=== PATIENT | female | born 1995 | race Caucasian/White ===

== ENCOUNTER → 2016-03-28 | Outpatient (CLI) | payer OTHER ==
--- NOTE | 2016-03-28 16:30 | US ---
EXAMINATION TYPE: US OB >= 14 wk fetus DATE OF EXAM: 03/28/2016 4:19 PM COMPARISON: NONE HISTORY: LGA TECHNIQUE: EXAM MEASUREMENTS: GESTATIONAL AGE / DATING Physician Established: (35 weeks/2 days) EDC: 04/30/2016 Dates by LMP: (35 weeks/2 days) EDC: 04/30/2016 Dates by First Scan: (35 weeks/0 days) EDC: 05/02/2016 Dates by Current Scan for: (35 weeks/1 days) EDC: 05/01/2016 SURVEY IUP: Single PLACENTA: Fundal PREVIA: No previa IVORY: 14.5 cm Normal CERVICAL LENGTH (transabdominal: norm > 3.0cm): 4.1 cm BIOMETRY PRESENTATION: Breech BPD: 8.7 cm 35 weeks / 1 days HC: 32.8 cm 37 weeks / 2 days AC: 31.3 cm 35 weeks / 2 days FL: 6.3 cm 32 weeks / 5 days ESTIMATED WEIGHT IN GRAMS: 2499 grams ESTIMATED WEIGHT IN LBS/OZS: 5 lbs. 8 oz. WEIGHT PERCENTAGE BASED ON ESTABLISHED DATE: 32 % HC/AC: 1.1 FL/AC: 20% HEART RATE: 140 bpm RHYTHM: Normal IMPRESSION: GROWTH ACCORDING TO DATES. LIMITED ANATOMY SEEN DUE TO ADVANCED GESTATIONAL AGE and [place] DING.
== END | disposition home or self-care (01) ==
LOC: RADUSWWP 15:47
PROVIDERS: ATTEND Obstetrics & Gynecology
DX: O36.63X0 Maternal care for excessive fetal growth, third trimester, not applicable or unspecified (principal); Z3A.35 35 weeks gestation of pregnancy
CPT/HCPCS: 76805

== ENCOUNTER 2016-04-05 22:03 | Outpatient (CLI) | payer OTHER | END 2016-04-05 22:33 | disposition home or self-care (01) | LOC: FBPOP 22:03 | PROVIDERS: ATTEND Obstetrics & Gynecology | DX: Z53.9 Procedure and treatment not carried out, unspecified reason (principal); O99.89 Other specified diseases and conditions complicating pregnancy, childbirth and the puerperium; M54.9 Dorsalgia, unspecified; O32.1XX0 Maternal care for breech presentation, not applicable or unspecified; Z3A.36 36 weeks gestation of pregnancy | CPT/HCPCS: 59025; 84112; G0463; 99213 ==

== ENCOUNTER 2016-04-07 13:15 | Inpatient (IN) | payer OTHER ==
[2016-04-07] MEDS ORDERED: ceFAZolin 2 GM in SODIUM CHLORIDE 0.9% 100 ML IVPB ONE (14:00)
[2016-04-07] MEDS: LACTATED RINGERS 1,000 ML IV SCH ×2 (14:00→19:51)
[2016-04-07] MEDS ORDERED: LACTATED RINGERS 1,000 ML IV SCH (14:00)
[2016-04-07] MEDS ORDERED: CITRIC ACID-SODIUM CITRATE 15 ML CUP PO ONE (14:00)
[2016-04-07] MEDS ORDERED: LACTATED RINGERS 1,000 ML IV ONE (14:00)
--- NOTE | 2016-04-07 14:07 | P.HPOB ---
History of Present Illness H&P Date: 04/07/16 Chief Complaint: Leaking of fluid. This patient is a pleasant 20-year-old 1 para 0 female estimated gestational age 36-5/7 weeks who presents to labor and delivery with complaints of spontaneous rupture of membranes at 12:30 today. Patient's care is complicated by known breech presentation. Patient's been followed by Dr. Gallardo and otherwise appears uncomplicated. Review of Systems Ears, nose, mouth and throat: Denies headache, Denies sore throat Cardiovascular: Denies chest pain, Denies shortness of breath Respiratory: Denies cough Gastrointestinal: Reports excessive gas Genitourinary: Reports Menstruation: Reports amenorrhea Musculoskeletal: Denies myalgias Past Medical History Past Medical History: No Reported History History of Any Multi-Drug Resistant Organisms: None Reported Past Surgical History: No Surgical Hx Reported Additional Past Surgical History / Comment(s): 1 kidney Past Psychological History: No Psychological Hx Reported Smoking Status: Current every day smoker Past Alcohol Use History: None Reported Past Drug Use History: None Reported Medications and Allergies Home Medications Medication Instructions Recorded Confirmed Type Feh-Iybe-Lmglw Acid 1 cap PO DAILY 04/05/16 04/07/16 History [-U Capsule] Allergies Allergy/AdvReac Type Severity Reaction Status Date / Time No Known Allergies Allergy Verified 04/07/16 13:30 Exam - Vital Signs Vital signs: Intake and Output 04/06/16 04/07/16 04/07/16 22:59 06:59 14:59 Other: Weight 81.647 kg Patient Weight 04/08/16 06:59 Weight 81.647 kg - OBG Physical Exam Abdomen: bowel sounds normal, no diffuse tenderness, no bruit present, no guarding noted, no hepatomegaly, no splenomegaly, no mass Vulva: both: normal Cervix: Cervix is fingertip with gross rupture membranes Uterus: enlarged Results blood work shows she is overall negative, rubella immune, RPR nonreactive, hepatitis B negative, toxoplasmosis was negative, HIV was nonreactive. Ultrasounds as above. TODAY CONFIRMS BREECH Assessment and Plan (1) Premature rupture of membranes Narrative/Plan: This is a pleasant 20-year-old 1 para 0 female at 36-5/7 weeks' gestation with spontaneous premature rupture membranes and active labor. Patient has known breech presentation is confirmed at this time. Plan is to proceed with immediate section. Patient does understand the surgery and risks including risks of infection, bleeding, possible injury to bowel, bladder, vessels, and/or other organs. All the patient's questions are answered and a written consent was obtained. Status: Acute (2) Breech presentation Status: Acute (3) Rh negative status during Status: Acute
--- NOTE | 2016-04-07 14:17 | US ---
EXAMINATION TYPE: US OB limited DATE OF EXAM: 04/07/2016 2:09 PM COMPARISON: In pacs CLINICAL HISTORY: presenting part. EXAM PERFORMED: Transabdominal (TA) GESTATIONAL AGE / DATING No growth performed on today?s study per ordering physician SURVEY PRESENTATION: Breech HEART RATE: 132 bpm RHYTHM: Normal IMPRESSION: Breech presentation
[2016-04-07 14:25] LABS: Basophils # (A) 0.1 k/uL (0-0.2); Basophils % (A) 1 %; CH 30.6; CHCM 32.3; Eosinophils # (A) 0.2 k/uL (0-0.7); Eosinophils % (A) 1 %; HCT 40.9 % (34.0-46.0); HDW 2.55; HGB 13.5 gm/dL (11.4-16.0); Luc # (Auto) 0.29; Luc % (Auto) 2; Lymphocytes # (A) 1.5 k/uL (1.0-4.8); Lymphocytes % (A) 11 %; MCH 31.5 pg (25.0-35.0); MCHC 33.1 g/dL (31.0-37.0); MCV 95.4 fL (80.0-100.0); Mean Platelet Volume 8.3; Monocytes # (A) 1.5 k/uL (0-1.0); Monocytes % (A) 10 %; Neutrophils # (A) 10.9 k/uL (1.3-7.7); Neutrophils % (A) 76 %; RBC 4.29 m/uL (3.80-5.40); RDW 13.2 % (11.5-15.5); WBC 14.4 k/uL (4.0-11.0); WBC (Perox) 13.71
[2016-04-07] MEDS ORDERED: OXYTOCIN 10 UNIT/ML 1 ML VIAL IM ONE (14:26)
[2016-04-07] MEDS ORDERED: ONDANSETRON 4 MG/2 ML VIAL ONE (14:26)
[2016-04-07] MEDS ORDERED: PHENYLEPHRINE-0.9% NACL SYG 1 MG/10 ML SYRINGE ONE (14:26)
[2016-04-07] MEDS ORDERED: MORPHINE SULFATE (PF) 0.3 MG/0.3 ML SYR ONE (14:26)
[2016-04-07] MEDS ORDERED: NALBUPHINE 10 MG/ML AMPUL ONE (14:26)
[2016-04-07] MEDS ORDERED: SIMETHICONE 80 MG CHEWABLE PO PRN (15:40)
[2016-04-07] MEDS ORDERED: Rhogam IMMUNE GLOBULIN 1,500 UNIT/1 ML IM ONE (15:40)
[2016-04-07] MEDS ORDERED: diphenhydrAMINE 50 MG/ML 1 ML VIAL IVP PRN (15:40)
[2016-04-07] MEDS ORDERED: ACETAMINOPHEN TAB 325 MG TAB PO PRN (15:40)
[2016-04-07] MEDS ORDERED: NALOXONE 0.4 MG/ML 1 ML VIAL IV PRN ×2 (15:40→15:44)
[2016-04-07] MEDS ORDERED: ONDANSETRON 4 MG/2 ML VIAL IVP PRN (15:40)
[2016-04-07] MEDS ORDERED: METOCLOPRAMIDE 5 MG/ML 2 ML VIAL IVP PRN (15:40)
[2016-04-07] MEDS ORDERED: ZOLPIDEM 5 MG TAB PO PRN (15:40)
[2016-04-07] MEDS ORDERED: METHYLERGONOVINE 0.2 MG/ML 1 ML AMP IM ONE (15:41)
[2016-04-07] MEDS ORDERED: NALBUPHINE 10 MG/ML AMPUL IV PRN (15:44)
[2016-04-07] MEDS ORDERED: MORPHINE SULFATE 4 MG/ML SYRINGE IVP PRN (15:44)
[2016-04-07] MEDS: OXYTOCIN 30 UNITS/500 ML NS 30 UNIT in SALINE 1 500ML.BAG IV SCH ×2 (15:59→16:23)
[2016-04-07 16:35] LABS: Basophils # (A) 0.1 k/uL (0-0.2); Basophils % (A) 0 %; CH 30.8; CHCM 32.9; Eosinophils # (A) 0.1 k/uL (0-0.7); Eosinophils % (A) 1 %; HCT 33.7 % (34.0-46.0); HDW 2.56; HGB 11.2 gm/dL (11.4-16.0); Luc # (Auto) 0.24; Luc % (Auto) 1; Lymphocytes # (A) 1.4 k/uL (1.0-4.8); Lymphocytes % (A) 7 %; MCH 31.3 pg (25.0-35.0); MCHC 33.2 g/dL (31.0-37.0); MCV 94.1 fL (80.0-100.0); Mean Platelet Volume 8.1; Monocytes # (A) 0.6 k/uL (0-1.0); Monocytes % (A) 3 %; Neutrophils % (A) 87 %; RBC 3.58 m/uL (3.80-5.40); RDW 13.3 % (11.5-15.5); WBC 18.3 k/uL (4.0-11.0); WBC (Perox) 18.55
--- NOTE | 2016-04-07 17:07 | P.OP ---
Date of Procedure: 04/07/16 Preoperative Diagnosis: #1: 36-5/7 week . #2: Premature rupture of membranes and labor. #3: Known breech presentation Postoperative Diagnosis: #1: Same. #2: Unicornuate uterus. Procedure(s) Performed: Primary low transverse section Anesthesia: spinal Surgeon: Joseph Lou [employer] Service Team Member #1: Toshia Burton Estimated Blood Loss (ml): 800 Pathology: other (Placenta) Condition: stable Disposition: floor Indications for Procedure: Please see dictated H&P for intimate details of this patient's admission. Brief summary this is a pleasant 20-year-old 1 para 0 female 36-5/7 weeks gestation who was admitted to labor and delivery with spontaneous rupture membranes at 1230 hrs. Patient's care is per Dr. Gallardo is been complicated by known breech presentation. Ultrasound confirms persistent breech and spontaneous rupture membranes. Patient understands method of delivery is to proceed with section at this time. Patient does understand this and risks including risks of infection, bleeding, possible injury bowel, bladder, vessels, and other organs. All the patient's questions are answered written consent is obtained. Operative Findings: Viable female Apgars 8 and 9 delivery time is 1446 hrs. in the sacrum anterior breech presentation. 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 Description of Procedure: This patient has a Rodriguez catheter placed to straight drain. Patient subsequently taken to the operating room where she sat up and spinal anesthetic is administered without incident. With an adequate level of anesthesia she has abdominal prep and drape. Scalpels and taken a Pfannenstiel skin incision is then made. A second scalpel is taken down to the fascia and the fascia scored with the scalpel. Using the Blanc scissors I extend the fascial incision bilaterally. The fascia then dissected off the rectus muscles sharply. The rectus muscles are and the peritoneum was identified and entered sharply. Peritoneal incision extended superior and inferior without difficulty. Bladder blade is then placed. Bladder peritoneum was taken sharply off the lower uterine segment scalpels and taken low transverse uterine incision is then made. Using a hemostat I bluntly entered the uterine cavity and there is loss of clear fluid. This incision extended bluntly. The infant is found to be sacrum anterior presentation using the usual breech maneuvers we have delivery of viable female infant Apgars 8 and 9 delivery time is 1446 hrs. After delivery of the the umbilical cord is doubly clamped and cut. This has spontaneous respirations and good cry and grossly appears normal. The placenta is then manually extracted intact. Uterus is then externalized and uterine incision demarcated with Florez clamps. All tissues removed from the uterus. Inspection shows a normal right tube and ovary. There is an absent left tube and ovary however inspection of the left pelvic sidewall suggest a rudimentary ovary. With this done the uterus is then closed using 0 Vicryl running locked fashion 2 layers good hemostasis is noted bladder peritoneum was reapproximated using a 3-0 Vicryl. Excess fluid is removed from the abdomen and pelvis. Uterus tubes and ovaries are as above. This is a unicornuate uterus. Uterus placed back into the abdomen. Parietal peritoneum was then closed using 0 Vicryl running fashion. Rectus muscle reapproximate 0 Vicryl interrupted fashion. Fascia is then closed using 0 PDS. Fascial incision is intact and hemostatic. Subcutaneous tissues and closed using a 3-0 Vicryl. Skin is and closed using kina. Sterile dressing is applied. All counts are correct 3. There are no complications. Estimate blood loss is 800 mL.
--- NOTE | 2016-04-07 17:09 | P.PN ---
Progress Note - Text This is progress note on Miss Jaquelin Frazier. I was called to see Jaquelin secondary to persistent bleeding. She multiple golf ball size clots and bright red in nature. Uterine massage is done and the patient was giving IV Pitocin and IM Methergine. Persistent massage was done until the bleeding subsides. Stat CBC is done shows a hemoglobin 11.1. Patient is pointing appears stable bleeding does appear to have subsided. Most likely cause of her bleeding is atony, this appears to be resolving. Plan is to watch closely, and repeat CBC in the morning.
[2016-04-07] MEDS: SENNOSIDES-DOCUSATE SODIUM 1 EACH TAB PO SCH (19:49)
[2016-04-07 21:23] VITALS: BMI 31.8
[2016-04-07] MEDS ORDERED: METHYLERGONOVINE 0.2 MG TAB PO SCH (22:00)
[2016-04-08] MEDS ORDERED: Acetaminophen-Codeine 300-30mg TAB PO PRN ×2 (00:54)
[2016-04-08] MEDS ORDERED: KETOROLAC 30 MG/ML 1 ML VIAL IVP PRN (00:54)
[2016-04-08] MEDS: LACTATED RINGERS 1,000 ML IV SCH ×2 (03:46→21:59)
[2016-04-08 05:48] LABS: Basophils % (A) 0 %; CH 30.7; CHCM 33.7; Eosinophils # (A) 0.1 k/uL (0-0.7); Eosinophils % (A) 1 %; HCT 22.8 % (34.0-46.0); HDW 2.57; HGB 7.8 gm/dL (11.4-16.0); Luc # (Auto) 0.23; Luc % (Auto) 2; Lymphocytes # (A) 1.6 k/uL (1.0-4.8); Lymphocytes % (A) 13 %; MCH 31.5 pg (25.0-35.0); MCHC 34.4 g/dL (31.0-37.0); MCV 91.6 fL (80.0-100.0); Mean Platelet Volume 9.3; Monocytes # (A) 0.5 k/uL (0-1.0); Monocytes % (A) 4 %; Neutrophils % (A) 80 %; RBC 2.48 m/uL (3.80-5.40); RDW 13.3 % (11.5-15.5); WBC 12.5 k/uL (4.0-11.0); WBC (Perox) 12.53
[2016-04-08] MEDS ORDERED: HYDROcodone/APAP 5-325MG 1 EACH TAB PO PRN ×2 (06:17)
--- NOTE | 2016-04-08 06:36 | P.PNOBGPC ---
Subjective - Subjective Patient reports: Reports appetite normal, Reports voiding normally, Reports pain well controlled, Reports ambulating normally Jackson: doing well Objective - Vital Signs Latest vital signs: Vital Signs Temp Pulse Resp BP Pulse Ox 04/08/16 04:00 98.6 F 73 16 128/68 98 04/08/16 02:00 98 04/08/16 00:00 99.8 F H 84 16 128/71 97 04/07/16 22:00 98 04/07/16 20:00 98.2 F 93 16 126/67 98 04/07/16 18:02 94 20 133/67 04/07/16 17:32 106 H 20 129/82 96 04/07/16 17:17 99 20 128/76 97 04/07/16 17:02 96 20 108/76 100 04/07/16 16:48 106 H 20 121/75 99 04/07/16 16:38 84 20 105/71 100 04/07/16 16:18 121 H 20 153/87 100 04/07/16 16:11 90 20 120/60 100 04/07/16 16:00 80 94 L 04/07/16 15:48 67 20 109/57 100 04/07/16 15:33 60 20 110/56 99 04/07/16 15:17 97.6 F 88 20 116/58 94 L 04/07/16 14:17 86 20 150/85 Intake and Output 04/07/16 04/07/16 04/08/16 14:59 22:59 06:59 Intake Total 0 548 1000 Output Total 200 1300 Balance 0 348 -300 Intake: IV 0 500 Oxytocin 30 Units/500 ml 0 500 Ns 30 unit In Saline 1 500ml.bag @ 120 mls/hr IV .Q4H10M KEELY Rx#: [id number] Intake, IV Titration 48 1000 Amount Lactated Ringers 1,000 ml 1000 @ 125 mls/hr IV .Q8H KEELY Rx#:[id number] Oxytocin 30 Units/500 ml 48 Ns 30 unit In Saline 1 500ml.bag @ 120 mls/hr IV .Q4H10M KEELY Rx#: [id number] Output: Urine 200 1300 Other: Weight 81.647 kg Patient Weight 04/08/16 06:59 Weight 81.647 kg - Exam Lungs: bilateral: normal Chest: Normal S1, Normal S2 Extremities: Present: normal Abdomen: Present: normal appearance, soft. Absent: distention, tenderness Incision: Present: normal, dry, intact Uterus: Present: normal, firm - Labs Labs: Abnormal Lab Results - Last 24 Hours (Table) 04/07/16 04/07/16 04/08/16 Range/Units 14:15 16:14 05:31 WBC 14.4 H 18.3 H 12.5 H (4.0-11.0) k/uL RBC 3.58 L 2.48 L (3.80-5.40) m/uL Hgb 11.2 L 7.8 L D (11.4-16.0) gm/dL Hct 33.7 L 22.8 L (34.0-46.0) % Neutrophils # 10.9 H 16.0 H 10.0 H (1.3-7.7) k/uL Monocytes # 1.5 H (0-1.0) k/uL Assessment and Plan (1) Premature rupture of membranes Narrative/Plan: Postoperative day #1. Patient is resting without new complaints and had no further bleeding episodes since last evening. Vital signs are stable, she is afebrile, and not tachycardic. Uterus is firm, nontender, and she is having normal lochia this morning. Her incision is intact and dry. Hemoglobin this morning is 7.8 which is consistent with her estimated blood loss . Plan today is to remove her catheter, encourage ambulation, allow her to shower , advance to a regular diet, begin iron therapy, and continue routine care. Patient and I did have a long discussion about her unicornuate uterus and she also informed me that she's been told she only has one kidney as well. She understands she will need to be watched closely her next for risk of delivery, PROM, etc. 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 Dr. Burton will continue her care after today. Current Visit: Yes Status: Acute Code(s): O42.90 - CIPRIANO ROM, 7TH0 BETW RUPT & ONST LABR, UNSP WEEKS OF GEST SNOMED Code(s): 43189243 (2) Breech presentation Current Visit: Yes Status: Acute Code(s): O32.1XX0 - MATERNAL CARE FOR BREECH PRESENTATION, UNSP SNOMED Code(s): 2475446 (3) Rh negative status during Current Visit: Yes Status: Acute Code(s): O09.899 - SUPERVISION OF OTHER HIGH RISK PREGNANCIES, UNSP TRIMESTER SNOMED Code(s): 852956562 (4) Anemia Current Visit: Yes Status: Acute Code(s): D64.9 - ANEMIA, UNSPECIFIED SNOMED Code(s): 156099590
[2016-04-08] MEDS: IBUPROFEN 600 MG TAB PO PRN (07:03)
--- NOTE | 2016-04-08 08:13 | P.PN ---
Progress Note - Text Date:04/08 Time:700 Patient is status post . Patient seen this morning with VAS score of 2. c/o of pruritus, no c/o nausea/vomiting, comfortable and doing well.
[2016-04-08] MEDS: SENNOSIDES-DOCUSATE SODIUM 1 EACH TAB PO SCH ×2 (08:45→19:59)
[2016-04-08] MEDS: IRON AG/C/B12/CA/SUC.ACID/STOM 1 EACH TAB PO SCH (08:45)
[2016-04-08] MEDS: diphenhydrAMINE 25 MG CAP PO PRN (19:59)
[2016-04-09] MEDS ORDERED: Acetaminophen-Codeine 300-30mg TAB PO PRN (01:09)
[2016-04-09] MEDS: Acetaminophen-Codeine 300-30mg TAB PO PRN ×5 (01:22→21:32)
[2016-04-09] MEDS: diphenhydrAMINE 25 MG CAP PO PRN ×3 (01:23→21:32)
--- NOTE | 2016-04-09 07:21 | P.PNOBGPC ---
Subjective - Subjective Principal diagnosis: Status post primary section postoperative day #2 Interval history: Patient does complain of some pain on the right side of her incision near her hip area, worse when she is ambulating. She is passing flatus and bowel movement. She is urinating without difficulty. She states her bleeding is minimal was very small clots. She did have to switch back from [place] to Tylenol 3 due to a reaction with the [place] of face flushing. Patient reports: Reports appetite normal, Reports voiding normally, Reports pain well controlled, Reports ambulating normally : doing well Objective - Vital Signs Latest vital signs: Vital Signs Temp Pulse Resp BP Pulse Ox 04/09/16 00:00 99.5 F 81 18 120/69 97 04/08/16 16:00 100 F H 86 20 121/69 100 04/08/16 12:00 98.2 F 70 20 111/74 97 04/08/16 08:00 98.1 F 66 20 117/79 97 Intake and Output 04/08/16 04/09/16 04/09/16 22:59 06:59 14:59 Output Total 800 Balance -800 Output: Estimated Blood Loss 800 - Exam Extremities: Present: normal. Absent: tenderness Abdomen: Present: normal appearance, soft (Positive bowel sounds 4). Absent: distention, tenderness Incision: Present: normal, dry, intact. Absent: erythematous Uterus: Present: normal, firm. Absent: tenderness Assessment and Plan (1) delivery delivered Narrative/Plan: Impression is status post primary delivery postoperative day #2. Plan is to continue working on pain control and ambulation. Continue with postoperative care. Current Visit: Yes Status: Acute Code(s): O82 - ENCOUNTER FOR DELIVERY WITHOUT INDICATION SNOMED Code(s): 833491851
[2016-04-09] MEDS: IRON AG/C/B12/CA/SUC.ACID/STOM 1 EACH TAB PO SCH (08:10)
[2016-04-09] MEDS: guaiFENesin SYRUP 100MG/5ML 200 MG/10 ML CUP PO PRN ×2 (17:04→23:27)
[2016-04-09] MEDS: SENNOSIDES-DOCUSATE SODIUM 1 EACH TAB PO SCH ×2 (17:34→21:33)
[2016-04-10] MEDS: Acetaminophen-Codeine 300-30mg TAB PO PRN (01:40)
--- NOTE | 2016-04-10 07:57 | P.DS ---
Providers Date of admission: 04/07/16 13:57 Expected date of discharge: 04/10/16 Attending physician: Krissy Gallardo - Discharge Diagnosis(es) (1) delivery delivered Current Visit: Yes Status: Acute Hospital Course: This is a 20-year-old female 1 para 0 at 36-5/7 weeks who presented with spontaneous rupture of membranes. She underwent a primary section due to breech presentation. At the time of section it was found that she had a unicornuate uterus with just a right horn. Her post operative course was complicated by some hemorrhage on postoperative day #0. This did resolve with Methergine and oxytocin. Her hemoglobin did drop however she is been relatively asymptomatic. She does have some mild lightheadedness when she gets up but it stabilizes after she gets moving. Her lochia is minimal at this time. She is bottle feeding. She does complain of a head cold and some coughing. She has passed flatus and bowel movement and is urinating without difficulty. Her vital signs are stable. Abdomen is soft with positive bowel sounds 4. Incision is clean dry and intact. Extremities show negative Homans. Impression is status post primary section postoperative day #3. Plan is to discharge home today. José Miguel will be removed and Steri-Strips placed prior to discharge. She will be given prescriptions for ibuprofen and Tylenol 3. She is encouraged to continue taking guaifenesin as needed for her cough. She is advised to follow up in the office with Dr. Gallardo in 1 week. She is also advised to call the office if she has any further questions or concerns prior to her appointment time. Procedures: Primary low transverse section on 04/07/2016 Patient Condition at Discharge: Stable Plan - Discharge Summary New Discharge Prescriptions: Acetaminophen-Codeine 300-30mg [Tylenol w/codeine #3] 1 each PO Q4HR PRN #30 tab PRN Reason: Mild Pain exceeding Tylenol Ibuprofen [Motrin] 600 mg PO Q6HR PRN #60 tab PRN Reason: Mild Pain Or Fever >= 100.5 Iron Ag/C/B12/Ca/Suc.acid/Stom [Chromagen LF] 1 each PO DAILY #30 tab Discharge Medication List Ouh-Nofm-Rhfwc Acid [-U Capsule] 1 cap PO DAILY 04/05/16 [ History] Acetaminophen-Codeine 300-30mg [Tylenol w/codeine #3] 1 each PO Q4HR PRN #30 tab 04/10/16 [Rx] Ibuprofen [Motrin] 600 mg PO Q6HR PRN #60 tab 04/10/16 [Rx] Iron Ag/C/B12/Ca/Suc.acid/Stom [Chromagen LF] 1 each PO DAILY #30 tab 04/10/16 [ Rx] guaiFENesin SYRUP 100MG/5ML [Robitussin] 200 mg PO Q6H PRN #0 cup 04/10/16 [Rx] Follow up Appointment(s)/Referral(s): Krissy Gallardo DO [Doctor of Osteopathic Medicine] - 1 Week (Postoperative check in 1 week check in 6 weeks) Activity/Diet/Wound Care/Special Instructions: Instructions 1. Do not begin any exercise program for 3 weeks. 2. Do not resume sexual relations for 3 weeks or longer if uncomfortable. 3. You may take tub baths or showers at any time. 4. You may use tampons if desired after 3 weeks. 5. Keep the area of episiotomy (stitches) clean and dry. 6. If you are not nursing, wear a good fitting, supportive bra during the day and limit fluid intake for at least 1 week to prevent breast engorgement. 7. Call the office, [phone], within the next week to make appointment for your 6 week checkup if it has not already been made. 8. Report any of the following occurrences to the doctor promptly: a. Heavy, excessive bleeding b. Chills, fever c. Burning or frequency of urination d. Pain or redness and breasts if nursing e. Increasing pain or swelling in episiotomy (stitches). In addition to the above instructions, the following additional should be followed: 1. No heavy lifting or straining (exercising) until after 6 week checkup. 2. Keep abdominal incision clean and dry: You may wear a dressing if more comfortable. 3. Make office appointment for 10 days after going home or as instructed by her doctor. Discharge Disposition: HOME SELF-CARE
[2016-04-10 08:16] VITALS: BP 130/81; PULSE 74; RESP 16; TEMP 97.8
[2016-04-10] MEDS: IRON AG/C/B12/CA/SUC.ACID/STOM 1 EACH TAB PO SCH (10:13)
[2016-04-10] MEDS: SENNOSIDES-DOCUSATE SODIUM 1 EACH TAB PO SCH (10:13)
[2016-04-10] MEDS ORDERED: medroxyPROGESTERone 150 MG/ML 1ML VIAL IM ONE (13:30)
[2016-04-10] MEDS: IBUPROFEN 600 MG TAB PO PRN (13:57)
== END 2016-04-10 15:00 | disposition home or self-care (01) | DRG 765 ==
LOC: FBPOP 13:15 → 4FBP 13:57
PROVIDERS: ADMIT Obstetrics & Gynecology; ATTEND Obstetrics & Gynecology
PROC: 3E0S3NZ Introduction of Analgesics, Hypnotics, Sedatives into Epidural Space, Percutaneous Approach (ICD-10-PCS; 2016-04-07)
PROC: 10D00Z1 Extraction of Products of Conception, Low, Open Approach (ICD-10-PCS; principal; 2016-04-07 14:30)
DX: O32.1XX0 Maternal care for breech presentation, not applicable or unspecified (principal); O72.1 Other immediate postpartum hemorrhage; Q60.0 Renal agenesis, unilateral; Q51.4 Unicornate uterus; D64.9 Anemia, unspecified; O42.013 Preterm premature rupture of membranes, onset of labor within 24 hours of rupture, third trimester; Q50.01 Congenital absence of ovary, unilateral; Q50.6 Other congenital malformations of fallopian tube and broad ligament; J00 Acute nasopharyngitis [common cold]; O99.52 Diseases of the respiratory system complicating childbirth; T40.2X5A Adverse effect of other opioids, initial encounter; R42 Dizziness and giddiness; O99.334 Smoking (tobacco) complicating childbirth; O26.893 Other specified pregnancy related conditions, third trimester; R23.2 Flushing; F17.200 Nicotine dependence, unspecified, uncomplicated; Z3A.36 36 weeks gestation of pregnancy; Z37.0 Single live birth; Z67.41 Type O blood, Rh negative
CPT/HCPCS: 59025; 76815; 85025; 86850; 86900; 86901; 88307; 99213

== ENCOUNTER 2018-10-15 14:10 | Emergency (ER) | payer OTHER ==
[2018-10-15 14:13] VITALS: BP 116/69; PULSE 63; RESP 18; TEMP 97.8
[2018-10-15] MEDS ORDERED: MAG HYDROX/AL HYDROX/SIMETH 30 ML, HYOSCYAMINE ELIXIR 10 ML, CIMETIDINE HCL 300 MG, LID... PO STA ×4 (14:36)
[2018-10-15] MEDS ORDERED: FAMOTIDINE 20 MG TAB PO STA (14:36)
--- NOTE | 2018-10-15 14:38 | ED ---
Abdominal Pain HPI - General Chief Complaint: Abdominal Pain Stated Complaint: ABd Pain Time Seen by Provider: 10/15/18 14:20 Source: patient Mode of arrival: ambulatory Limitations: no limitations - History of Present Illness Initial Comments: 22-year-old female patient presents to the emergency department today for evaluation of midepigastric abdominal discomfort and acid reflux. Patient states that she's had worsening symptoms since last night. States she does have a history of peptic ulcer disease but hasn't been taking her medication. Patient states she did have a couple episodes of vomiting with this last evening. She denies any diarrhea or constipation. Denies any lower abdominal pain. Denies any hematuria, dysuria, urinary frequency, urinary urgency. Denies chance of . Patient denies any recent rash, fever, chills, shortness breath, chest pain, constipation, back pain, numbness, tingling, dizziness, weakness, hematuria, dysuria, urinary urgency, urinary frequency, headache, visual changes, or any other complaints. - Related Data Home Medications Medication Instructions Recorded Confirmed medroxyPROGESTERone [Depo-Provera] 150 mg IM Q90D 10/15/18 10/15/18 Previous Rx's Medication Instructions Recorded Famotidine [Pepcid] 20 mg PO HS #30 tablet 10/15/18 Allergies Allergy/AdvReac Type Severity Reaction Status Date / Time No Known Allergies Allergy Verified 10/15/18 14:33 Review of Systems ROS Statement: Those systems with pertinent positive or pertinent negative responses have been documented in the HPI. ROS Other: All systems not noted in ROS Statement are negative. 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 History of Any Multi-Drug Resistant Organisms: None Reported Past Surgical History: No Surgical Hx Reported Additional Past Surgical History / Comment(s): 1 kidney Past Anesthesia/Blood Transfusion Reactions: No Reported Reaction Past Psychological History: No Psychological Hx Reported Smoking Status: Current every day smoker Past Alcohol Use History: Occasional Past Drug Use History: None Reported - Past Family History Mother Family Medical History: Thyroid Disorder General Exam Limitations: no limitations General appearance: alert, in no apparent distress, other (This is a well- developed, well-nourished adult female patient in no acute distress. Vital signs upon presentation are temperature 97.8F, pulse 63, respirations 18, blood pressure 116/69, pulse ox 100% on room air.) Eye exam: Present: normal appearance, PERRL, EOMI. Absent: scleral icterus, conjunctival injection, periorbital swelling ENT exam: Present: normal exam, normal oropharynx, mucous membranes moist Respiratory exam: Present: normal lung sounds bilaterally. Absent: respiratory distress, wheezes, rales, rhonchi, stridor Cardiovascular Exam: Present: regular rate, normal rhythm, normal heart sounds. Absent: systolic murmur, diastolic murmur, rubs, gallop, clicks GI/Abdominal exam: Present: soft, tenderness (Midepigastric), normal bowel sounds. Absent: distended, guarding, rebound, rigid Neurological exam: Present: alert, oriented X3, CN II-XII intact Psychiatric exam: Present: normal affect, normal mood Skin exam: Present: warm, dry, intact, normal color. Absent: rash Course Vital Signs 10/15/18 14:11 Temperature 97.8 F Pulse Rate 63 Respiratory 18 Rate Blood Pressure 116/69 O2 Sat by Pulse 100 Oximetry Medical Decision Making - Medical Decision Making 22-year-old female patient presents to the emergency department today for evaluation of acid reflux and midepigastric discomfort. Patient has history of peptic ulcer disease and states symptoms are similar. I did offer to perform lab testing and give IV medications. Patient declined stating that she would just like treatment for the symptoms. We will give GI cocktail. She'll be given a prescription for Pepcid. She is instructed to follow-up with her primary care physician for recheck in 1-2 days. She is instructed to follow up with GI specialist for recheck if needed. Return parameters were discussed in detail. She verbalizes understanding and agrees with this plan. Disposition Clinical Impression: Acid reflux, Abdominal pain Disposition: HOME SELF-CARE Condition: Good Instructions (If sedation given, give patient instructions): Diet for Stomach Ulcers and Gastritis (ED), Gastroesophageal Reflux Disease (ED), Abdominal Pain (ED) Additional Instructions: Take medication as directed. Follow up with primary care physician for recheck as soon as possible. Follow up with GI specialist for recheck if needed. Return to the emergency department for any new, worsening, or concerning symptoms. Your prescription was sent to [facility] in [place]. Prescriptions: Famotidine [Pepcid] 20 mg PO HS #30 tablet Is patient prescribed a controlled substance at d/c from ED?: No Referrals: Martin Contreras MD [Primary Care Provider] - 1-2 days Ethan Humphries MD [STAFF PHYSICIAN] - 1-2 days Time of Disposition: 14:38
== END 2018-10-15 15:09 | disposition home or self-care (01) ==
LOC: EC 14:10
DX: K21.9 Gastro-esophageal reflux disease without esophagitis (principal); F17.200 Nicotine dependence, unspecified, uncomplicated; Z87.11 Personal history of peptic ulcer disease; Z79.3 Long term (current) use of hormonal contraceptives
CPT/HCPCS: 99283

== ENCOUNTER 2018-10-16 13:36 | Emergency (ER) | payer OTHER ==
[2018-10-16] MEDS ORDERED: MAG HYDROX/AL HYDROX/SIMETH 30 ML, HYOSCYAMINE ELIXIR 10 ML, CIMETIDINE HCL 300 MG, LID... PO STA ×4 (13:54)
[2018-10-16] MEDS ORDERED: PANTOPRAZOLE 40 MG/10 ML VIAL IVP STA (13:54)
[2018-10-16] MEDS ORDERED: ONDANSETRON 4 MG/2 ML VIAL IVP STA (13:54)
[2018-10-16] MEDS ORDERED: SODIUM CHLORIDE 0.9% 1,000 ML IV STA (13:54)
--- NOTE | 2018-10-16 14:18 | ED ---
Abdominal Pain HPI - General Chief Complaint: Abdominal Pain Stated Complaint: Stomach ulcer Time Seen by Provider: 10/16/18 13:48 Source: patient, RN notes reviewed Mode of arrival: ambulatory Limitations: no limitations - History of Present Illness Initial Comments: This a 22-year-old female presents emergency Department chief complaint of upper abdominal pain. Patient states she seen here last night states that she does have a history of stomach ulcers and was given a GI cocktail and did help. She states she woke up around 1 AM vomiting and worse pain. She denies take her Pepcid today. Patient has not seen a GI for EGD or surgeon. She reports no fevers chills she states she has radiating burning pain into her throat region. Patient has had prior sections denies any other abdominal surgeries. - Related Data Home Medications Medication Instructions Recorded Confirmed medroxyPROGESTERone [Depo-Provera] 150 mg IM Q90D 10/15/18 10/16/18 Previous Rx's Medication Instructions Recorded Famotidine [Pepcid] 20 mg PO HS #30 tablet 10/15/18 Cephalexin [Keflex] 500 mg PO Q8HR #15 cap 10/16/18 Mag Hydrox/Al Hydrox/Simeth 10 - 20 ml PO Q6HR #12 oz 10/16/18 [Maalox] Allergies Allergy/AdvReac Type Severity Reaction Status Date / Time No Known Allergies Allergy Verified 10/16/18 13:55 Review of Systems ROS Statement: Those systems with pertinent positive or pertinent negative responses have been documented in the HPI. ROS Other: All systems not noted in ROS Statement are negative. 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 History of Any Multi-Drug Resistant Organisms: None Reported Past Surgical History: Section Additional Past Surgical History / Comment(s): 1 kidney Past Anesthesia/Blood Transfusion Reactions: No Reported Reaction Past Psychological History: No Psychological Hx Reported Smoking Status: Current every day smoker Past Alcohol Use History: Occasional Past Drug Use History: None Reported - Past Family History Mother Family Medical History: Thyroid Disorder General Exam Limitations: no limitations General appearance: alert, in no apparent distress Head exam: Present: atraumatic, normocephalic, normal inspection Respiratory exam: Present: normal lung sounds bilaterally. Absent: respiratory distress, wheezes, rales, rhonchi, stridor Cardiovascular Exam: Present: regular rate, normal rhythm, normal heart sounds. Absent: systolic murmur, diastolic murmur, rubs, gallop, clicks GI/Abdominal exam: Present: soft, tenderness (Mild epigastric tenderness), normal bowel sounds. Absent: distended, guarding, rebound, rigid Back exam: Absent: CVA tenderness (R), CVA tenderness (L) Neurological exam: Present: alert Course Vital Signs 10/16/18 13:37 Temperature 97.9 F Pulse Rate 59 L Respiratory 18 Rate Blood Pressure 115/72 O2 Sat by Pulse 100 Oximetry Medical Decision Making - Medical Decision Making 22-year-old female presents emergency Department chief complaint of abdominal pain. Patient does get great improvement after GI cocktail labs are unremarkable urinalysis is nitrite positive concerning for urinary tract infe ction. Patient starting antibiotics. Patient will continue Pepcid and which is increased twice a day, patient will be given Maalox to be use as directed. Patient will follow-up with GI or surgery for EGD. - Lab Data Result diagrams: 10/16/18 14:08 10/16/18 14:08 Lab Results 10/16/18 10/16/18 10/16/18 Range/Units 14:08 14:08 14:08 WBC 8.7 (3.8-10.6) k/uL RBC 4.65 (3.80-5.40) m/uL Hgb 13.7 (11.4-16.0) gm/dL Hct 42.0 (34.0-46.0) % MCV 90.4 (80.0-100.0) fL MCH 29.5 (25.0-35.0) pg MCHC 32.6 (31.0-37.0) g/dL RDW 13.1 (11.5-15.5) % Plt Count 239 (150-450) k/uL Neutrophils % 66 % Lymphocytes % 26 % Monocytes % 5 % Eosinophils % 2 % Basophils % 1 % Neutrophils # 5.7 (1.3-7.7) k/uL Lymphocytes # 2.3 (1.0-4.8) k/uL Monocytes # 0.4 (0-1.0) k/uL Eosinophils # 0.2 (0-0.7) k/uL Basophils # 0.1 (0-0.2) k/uL Sodium 143 (137-145) mmol/L Potassium 4.2 (3.5-5.1) mmol/L Chloride 107 (98-107) mmol/L Carbon Dioxide 25 (22-30) mmol/L Anion Gap 11 mmol/L BUN 13 (7-17) mg/dL Creatinine 0.72 (0.52-1.04) mg/dL Est GFR (CKD-EPI)AfAm >90 (>60 ml/min/1.73 sqM) Est GFR (CKD-EPI)NonAf >90 (>60 ml/min/1.73 sqM) Glucose 92 (74-99) mg/dL Calcium 9.7 (8.4-10.2) mg/dL Total Bilirubin 0.6 (0.2-1.3) mg/dL AST 23 (14-36) U/L ALT 31 (9-52) U/L Alkaline Phosphatase 69 (38-126) U/L Total Protein 8.1 (6.3-8.2) g/dL Albumin 4.8 (3.5-5.0) g/dL Lipase 37 (23-300) U/L Urine Color Urine Appearance (Clear) Urine pH (5.0-8.0) Ur Specific [place] (1.001-1.035) Urine Protein (Negative) Urine Glucose (UA) (Negative) Urine Ketones (Negative) Urine Blood (Negative) Urine Nitrite (Negative) Urine Bilirubin (Negative) Urine Urobilinogen (<2.0) mg/dL Ur Leukocyte Esterase (Negative) Urine WBC (0-5) /hpf Amorphous Sediment (None) /hpf Urine Bacteria (None) /hpf Urine Mucus (None) /hpf Urine HCG, Qual Not Detected (Not Detectd) 10/16/18 Range/Units 14:08 WBC (3.8-10.6) k/uL RBC (3.80-5.40) m/uL Hgb (11.4-16.0) gm/dL Hct (34.0-46.0) % MCV (80.0-100.0) fL MCH (25.0-35.0) pg MCHC (31.0-37.0) g/dL RDW (11.5-15.5) % Plt Count (150-450) k/uL Neutrophils % % Lymphocytes % % Monocytes % % Eosinophils % % Basophils % % Neutrophils # (1.3-7.7) k/uL Lymphocytes # (1.0-4.8) k/uL Monocytes # (0-1.0) k/uL Eosinophils # (0-0.7) k/uL Basophils # (0-0.2) k/uL Sodium (137-145) mmol/L Potassium (3.5-5.1) mmol/L Chloride (98-107) mmol/L Carbon Dioxide (22-30) mmol/L Anion Gap mmol/L BUN (7-17) mg/dL Creatinine (0.52-1.04) mg/dL Est GFR (CKD-EPI)AfAm (>60 ml/min/1.73 sqM) Est GFR (CKD-EPI)NonAf (>60 ml/min/1.73 sqM) Glucose (74-99) mg/dL Calcium (8.4-10.2) mg/dL Total Bilirubin (0.2-1.3) mg/dL AST (14-36) U/L ALT (9-52) U/L Alkaline Phosphatase (38-126) U/L Total Protein (6.3-8.2) g/dL Albumin (3.5-5.0) g/dL Lipase (23-300) U/L Urine Color Yellow Urine Appearance Turbid H (Clear) Urine pH 8.0 (5.0-8.0) Ur Specific [place] 1.021 (1.001-1.035) Urine Protein Negative (Negative) Urine Glucose (UA) Negative (Negative) Urine Ketones Negative (Negative) Urine Blood Negative (Negative) Urine Nitrite Positive H (Negative) Urine Bilirubin Negative (Negative) Urine Urobilinogen <2.0 (<2.0) mg/dL Ur Leukocyte Esterase Trace H (Negative) Urine WBC 4 (0-5) /hpf Amorphous Sediment Rare H (None) /hpf Urine Bacteria Moderate H (None) /hpf Urine Mucus Rare H (None) /hpf Urine HCG, Qual (Not Detectd) Disposition Clinical Impression: GERD (gastroesophageal reflux disease), Gastritis, UTI (urinary tract infection) Disposition: HOME SELF-CARE Condition: Stable Instructions (If sedation given, give patient instructions): Gastritis (ED), Diet for Stomach Ulcers and Gastritis (ED) Additional Instructions: Please return to the Emergency Department if symptoms worsen or any other concerns. Prescriptions: Cephalexin [Keflex] 500 mg PO Q8HR #15 cap Mag Hydrox/Al Hydrox/Simeth [Maalox] 10 - 20 ml PO Q6HR #12 oz Is patient prescribed a controlled substance at d/c from ED?: No Referrals: Martin Contreras MD [Primary Care Provider] - 1-2 days Obi Vidal MD [STAFF PHYSICIAN] - 1-2 days Ethan Humphries MD [STAFF PHYSICIAN] - 1-2 days Time of Disposition: 15:48
[2018-10-16 14:23] LABS: Basophils # (A) 0.1 k/uL (0-0.2); Basophils % (A) 1 %; Eosinophils # (A) 0.2 k/uL (0-0.7); Eosinophils % (A) 2 %; HGB 13.7 gm/dL (11.4-16.0); Lymphocytes # (A) 2.3 k/uL (1.0-4.8); Lymphocytes % (A) 26 %; MCH 29.5 pg (25.0-35.0); MCHC 32.6 g/dL (31.0-37.0); MCV 90.4 fL (80.0-100.0); Mean Platelet Volume 6.7; Monocytes # (A) 0.4 k/uL (0-1.0); Monocytes % (A) 5 %; Neutrophils # (A) 5.7 k/uL (1.3-7.7); Neutrophils % (A) 66 %; Platelet Count 239 k/uL (150-450); RBC 4.65 m/uL (3.80-5.40); RDW 13.1 % (11.5-15.5); WBC 8.7 k/uL (3.8-10.6)
[2018-10-16 14:36] LABS: ALT 31 U/L (9-52); AST 23 U/L (14-36); African American GFR (CKD) >90 (>60 ml/min/1.73 sqM); Albumin 4.8 g/dL (3.5-5.0); Alkaline Phosphatase 69 U/L (38-126); Anion Gap 11 mmol/L; Blood Urea Nitrogen 13 mg/dL (7-17); Calcium 9.7 mg/dL (8.4-10.2); Carbon Dioxide 25 mmol/L (22-30); Chloride 107 mmol/L (98-107); Glucose 92 mg/dL (74-99); Potassium 4.2 mmol/L (3.5-5.1); Sodium 143 mmol/L (137-145); Total Bilirubin 0.6 mg/dL (0.2-1.3); Total Protein 8.1 g/dL (6.3-8.2)
[2018-10-16 15:35] LABS: Amorphous Sediment,Urine Rare /hpf; Appearance,Urine Turbid (Clear); Bacteria,Urine Moderate /hpf; Bilirubin,Urine Negative (Negative); Blood,Urine Negative (Negative); Color,Urine Yellow; Glucose,Urine (UA) Negative (Negative); Ketones,Urine Negative (Negative); Leukocyte Esterase,Urine Trace (Negative); Mucus,Urine Rare /hpf; Nitrite,Urine Positive (Negative); Protein,Urine Negative (Negative); Specific Gravity,Urine 1.021 (1.001-1.035); Urobilinogen,Urine <2.0 mg/dL (<2.0)
[2018-10-16 16:09] VITALS: BP 132/77; PULSE 64; RESP 17; TEMP 97.8
== END 2018-10-16 16:08 | disposition home or self-care (01) ==
LOC: EC 13:36
DX: K21.9 Gastro-esophageal reflux disease without esophagitis (principal); K29.70 Gastritis, unspecified, without bleeding; N39.0 Urinary tract infection, site not specified; Q60.0 Renal agenesis, unilateral; F17.200 Nicotine dependence, unspecified, uncomplicated; Z79.3 Long term (current) use of hormonal contraceptives
CPT/HCPCS: 36415; 80053; 83690; 85025; 81001; 81025; 99284; 96374; 96375; 96361; J2405; C9113

== ENCOUNTER 2018-10-26 21:34 | Emergency (ER) | payer OTHER ==
[2018-10-26 21:47] VITALS: RESP 18
[2018-10-26] MEDS ORDERED: SODIUM CHLORIDE 0.9% 1,000 ML IV STA (22:34)
[2018-10-26] MEDS ORDERED: oxyCODONE-APAP 7.5-325MG 1 EACH TAB PO STA (23:08)
[2018-10-26 23:44] LABS: Basophils # (A) 0.1 k/uL (0-0.2); Basophils % (A) 1 %; Eosinophils # (A) 0.2 k/uL (0-0.7); Eosinophils % (A) 2 %; HCT 40.5 % (34.0-46.0); HGB 13.9 gm/dL (11.4-16.0); Lymphocytes % (A) 32 %; MCH 30.4 pg (25.0-35.0); MCHC 34.2 g/dL (31.0-37.0); MCV 88.9 fL (80.0-100.0); Monocytes # (A) 0.4 k/uL (0-1.0); Monocytes % (A) 4 %; Neutrophils # (A) 5.7 k/uL (1.3-7.7); Neutrophils % (A) 60 %; Platelet Count 275 k/uL (150-450); RBC 4.56 m/uL (3.80-5.40); RDW 13.7 % (11.5-15.5); WBC 9.5 k/uL (3.8-10.6)
[2018-10-26 23:55] LABS: Amorphous Sediment,Urine Occasional /hpf; Appearance,Urine Turbid (Clear); Bacteria,Urine Few /hpf; Bilirubin,Urine Negative (Negative); Blood,Urine Negative (Negative); Color,Urine Yellow; Glucose,Urine (UA) Negative (Negative); Ketones,Urine Negative (Negative); Leukocyte Esterase,Urine Negative (Negative); Mucus,Urine Rare /hpf; Nitrite,Urine Negative (Negative); Protein,Urine Negative (Negative); Specific Gravity,Urine 1.024 (1.001-1.035); Squamous Epithelial Cell,Urine 1 /hpf (0-4); Urobilinogen,Urine <2.0 mg/dL (<2.0)
[2018-10-27 00:10] LABS: ALT 28 U/L (9-52); AST 28 U/L (14-36); African American GFR (CKD) >90 (>60 ml/min/1.73 sqM); Albumin 4.6 g/dL (3.5-5.0); Alkaline Phosphatase 71 U/L (38-126); Anion Gap 12 mmol/L; Bilirubin, Delta 0.1 mg/dL (0.0-0.2); Bilirubin,Unconjugated 0.3 mg/dL (0.0-1.1); Blood Urea Nitrogen 15 mg/dL (7-17); Calcium 9.8 mg/dL (8.4-10.2); Carbon Dioxide 23 mmol/L (22-30); Chloride 108 mmol/L (98-107); Glucose 80 mg/dL (74-99); Sodium 143 mmol/L (137-145); Total Bilirubin 0.4 mg/dL (0.2-1.3); Total Protein 7.9 g/dL (6.3-8.2)
[2018-10-27 00:13] LABS: Potassium 3.9 mmol/L (3.5-5.1)
--- NOTE | 2018-10-27 00:59 | US ---
EXAMINATION TYPE: US gallbladder DATE OF EXAM: 10/27/2018 COMPARISON: CT 2016 CLINICAL HISTORY: ruq pain r/o acute anatoliy. RUQ pain and N/V x 2 weeks EXAM MEASUREMENTS: Liver Length: 15.8 cm Gallbladder Wall: 0.2 cm CBD: 0.3 cm Right Kidney: 13.0 x 5.4 x 5.6 cm Pancreas: wnl Liver: wnl Gallbladder: multiple echogenic mobile shadowing foci, wall measures wnl Evidence for sonographic Lemon's sign: yes CBD: wnl Right Kidney: wnl IMPRESSION: Numerous gallstones. No dilated ducts. Normal liver.
[2018-10-27] MEDS ORDERED: traMADol 50 MG STARTER PACK 3 TAB BTL PO STA (01:47)
--- NOTE | 2018-10-27 01:52 | ED ---
General Adult HPI - General Chief complaint: Abdominal Pain Stated complaint: Abd Pain Time Seen by Provider: 10/26/18 22:34 Source: patient Mode of arrival: ambulatory Limitations: no limitations - History of Present Illness Initial comments: Dictation was produced using [employer] dictation software. please excuse any grammatical, word or spelling errors. Chief Complaint: 22-year-old female known history of cholelithiasis presents with right upper quadrant and epigastric abdominal pain. History of Present Illness: Patient is a 22-year-old female she was recently diagnosed cholelithiasis. Patient states she was at [employer]. She began feeling postprandial pain after eating a [facility] sandwich with cheese. Patient recently was diagnosed with cholelithiasis after an ultrasound was performed at [facility]. Denies. The ROS documented in this emergency department record has been reviewed and confirmed by me. Those systems with pertinent positive or negative responses have been documented in the HPI. All other systems are other negative and/or noncontributory. PHYSICAL EXAM: General Impression: Alert and oriented x3, not in acute distress HEENT: Normocephalic atraumatic, extra-ocular movements intact, pupils equal and reactive to light bilaterally, mucous membranes moist. Cardiovascular: Heart regular rate and rhythm, S1&S2 audible, no murmurs, rubs or gallops Chest: Lungs clear to auscultation bilaterally, no rhonchi, no wheeze, no rales Abdomen: Bowel sounds present, abdomen soft, epigastric abdominal tenderness Musculoskeletal: Pulses present and equal in all extremities, no peripheral edema Motor: no focal deficits noted Neurological: CN II-XII grossly intact, no focal motor or sensory deficits noted Skin: Intact with no visualized rashes Psych: Normal affect and mood ED course: 22-year-old male presents with epigastric and right upper quadrant abdominal pain today. Signs upon arrival shows heart rate of 110, worse vital signs within acceptable limits. Patient is afebrile. Laboratory evaluation obtained no leukocytosis. CBC unremarkable. Metabolic panel is negative. Urinalysis is negative. Ultrasound of the gallbladder was obtained read demonstrate cholelithiasis without any signs of acute cholecystitis. Patient given analgesia. She reports that her symptoms are improved. No pancreatitis. It has not had follow up with general surgery at. She reports that she is supposed to receive a phone call from general surgeon for appointment.. Patient given starter pack for pain medications. She is told to seek medical attention with fever, chills worsening right upper quadrant abdominal pain or worsening symptoms and pain that radiates to the back. Patient is understandable agreeable to plan. She is given follow-up information for general surgeons in [facility]. Patient told to avoid fatty foods. - Related Data Home Medications Medication Instructions Recorded Confirmed medroxyPROGESTERone [Depo-Provera] 150 mg IM Q90D 10/15/18 10/26/18 Multivitamins, Thera [Multivitamin 1 tab PO DAILY 10/26/18 10/26/18 (formulary)] Previous Rx's Medication Instructions Recorded Famotidine [Pepcid] 20 mg PO HS #30 tablet 10/15/18 Cephalexin [Keflex] 500 mg PO Q8HR #15 cap 10/16/18 Mag Hydrox/Al Hydrox/Simeth 10 - 20 ml PO Q6HR #12 oz 10/16/18 [Maalox] Allergies Allergy/AdvReac Type Severity Reaction Status Date / Time No Known Allergies Allergy Verified 10/26/18 22:14 Review of Systems ROS Statement: Those systems with pertinent positive or pertinent negative responses have been documented in the HPI. ROS Other: All systems not noted in ROS Statement are negative. 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, gallstones, History of Any Multi-Drug Resistant Organisms: None Reported Past Surgical History: Section Additional Past Surgical History / Comment(s): 1 kidney, Past Anesthesia/Blood Transfusion Reactions: No Reported Reaction Past Psychological History: No Psychological Hx Reported Smoking Status: Current every day smoker Past Alcohol Use History: Occasional Past Drug Use History: None Reported - Past Family History Mother Family Medical History: Thyroid Disorder General Exam Limitations: no limitations Course Vital Signs 10/26/18 21:44 Temperature 98.8 F Pulse Rate 110 H Respiratory 18 Rate Blood Pressure 123/59 O2 Sat by Pulse 99 Oximetry Medical Decision Making - Lab Data Result diagrams: 10/26/18 23:20 10/26/18 23:20 Lab Results 10/26/18 10/26/18 10/26/18 Range/Units 23:20 23:20 23:20 WBC (3.8-10.6) k/uL RBC (3.80-5.40) m/uL Hgb (11.4-16.0) gm/dL Hct (34.0-46.0) % MCV (80.0-100.0) fL MCH (25.0-35.0) pg MCHC (31.0-37.0) g/dL RDW (11.5-15.5) % Plt Count (150-450) k/uL Neutrophils % % Lymphocytes % % Monocytes % % Eosinophils % % Basophils % % Neutrophils # (1.3-7.7) k/uL Lymphocytes # (1.0-4.8) k/uL Monocytes # (0-1.0) k/uL Eosinophils # (0-0.7) k/uL Basophils # (0-0.2) k/uL Sodium 143 (137-145) mmol/L Potassium 3.9 (3.5-5.1) mmol/L Chloride 108 H (98-107) mmol/L Carbon Dioxide 23 (22-30) mmol/L Anion Gap 12 mmol/L BUN 15 (7-17) mg/dL Creatinine 0.71 (0.52-1.04) mg/dL Est GFR (CKD-EPI)AfAm >90 (>60 ml/min/1.73 sqM) Est GFR (CKD-EPI)NonAf >90 (>60 ml/min/1.73 sqM) Glucose 80 (74-99) mg/dL Calcium 9.8 (8.4-10.2) mg/dL Total Bilirubin 0.4 (0.2-1.3) mg/dL Conjugated Bilirubin 0.0 (0.0-0.3) mg/dL Unconjugated Bilirubin 0.3 (0.0-1.1) mg/dL Delta Bilirubin 0.1 (0.0-0.2) mg/dL AST 28 (14-36) U/L ALT 28 (9-52) U/L Alkaline Phosphatase 71 (38-126) U/L Total Protein 7.9 (6.3-8.2) g/dL Albumin 4.6 (3.5-5.0) g/dL Lipase 42 (23-300) U/L Urine Color Yellow Urine Appearance Turbid H (Clear) Urine pH 7.0 (5.0-8.0) Ur Specific [place] 1.024 (1.001-1.035) Urine Protein Negative (Negative) Urine Glucose (UA) Negative (Negative) Urine Ketones Negative (Negative) Urine Blood Negative (Negative) Urine Nitrite Negative (Negative) Urine Bilirubin Negative (Negative) Urine Urobilinogen <2.0 (<2.0) mg/dL Ur Leukocyte Esterase Negative (Negative) Ur Squamous Epith Cells 1 (0-4) /hpf Amorphous Sediment Occasional H (None) /hpf Urine Bacteria Few H (None) /hpf Urine Mucus Rare H (None) /hpf Urine HCG, Qual Not Detected (Not Detectd) 10/26/18 Range/Units 23:20 WBC 9.5 (3.8-10.6) k/uL RBC 4.56 (3.80-5.40) m/uL Hgb 13.9 (11.4-16.0) gm/dL Hct 40.5 (34.0-46.0) % MCV 88.9 (80.0-100.0) fL MCH 30.4 (25.0-35.0) pg MCHC 34.2 (31.0-37.0) g/dL RDW 13.7 (11.5-15.5) % Plt Count 275 (150-450) k/uL Neutrophils % 60 % Lymphocytes % 32 % Monocytes % 4 % Eosinophils % 2 % Basophils % 1 % Neutrophils # 5.7 (1.3-7.7) k/uL Lymphocytes # 3.0 (1.0-4.8) k/uL Monocytes # 0.4 (0-1.0) k/uL Eosinophils # 0.2 (0-0.7) k/uL Basophils # 0.1 (0-0.2) k/uL Sodium (137-145) mmol/L Potassium (3.5-5.1) mmol/L Chloride (98-107) mmol/L Carbon Dioxide (22-30) mmol/L Anion Gap mmol/L BUN (7-17) mg/dL Creatinine (0.52-1.04) mg/dL Est GFR (CKD-EPI)AfAm (>60 ml/min/1.73 sqM) Est GFR (CKD-EPI)NonAf (>60 ml/min/1.73 sqM) Glucose (74-99) mg/dL Calcium (8.4-10.2) mg/dL Total Bilirubin (0.2-1.3) mg/dL Conjugated Bilirubin (0.0-0.3) mg/dL Unconjugated Bilirubin (0.0-1.1) mg/dL Delta Bilirubin (0.0-0.2) mg/dL AST (14-36) U/L ALT (9-52) U/L Alkaline Phosphatase (38-126) U/L Total Protein (6.3-8.2) g/dL Albumin (3.5-5.0) g/dL Lipase (23-300) U/L Urine Color Urine Appearance (Clear) Urine pH (5.0-8.0) Ur Specific [place] (1.001-1.035) Urine Protein (Negative) Urine Glucose (UA) (Negative) Urine Ketones (Negative) Urine Blood (Negative) Urine Nitrite (Negative) Urine Bilirubin (Negative) Urine Urobilinogen (<2.0) mg/dL Ur Leukocyte Esterase (Negative) Ur Squamous Epith Cells (0-4) /hpf Amorphous Sediment (None) /hpf Urine Bacteria (None) /hpf Urine Mucus (None) /hpf Urine HCG, Qual (Not Detectd) Disposition Clinical Impression: Symptomatic cholelithiasis Disposition: HOME SELF-CARE Condition: Good Instructions (If sedation given, give patient instructions): Gallstones (ED) Is patient prescribed a controlled substance at d/c from ED?: Yes If prescribed controlled substance>3 days was MAPS reviewed?: Prescribed <3 Days Referrals: Steven Stewart DO [Doctor of Osteopathic Medicine] - 1-2 days Malvin Jones MD [Medical Doctor] - 1-2 days Obi Vidal MD [STAFF PHYSICIAN] - 1-2 days Johanna Corey MD [STAFF PHYSICIAN] - 1-2 days Time of Disposition: 01:51
[2018-10-27 02:11] VITALS: BP 126/70; PULSE 98; TEMP 98.3
== END 2018-10-27 02:11 | disposition home or self-care (01) ==
LOC: EC 21:34
DX: K80.20 Calculus of gallbladder without cholecystitis without obstruction (principal); Q60.0 Renal agenesis, unilateral; F17.200 Nicotine dependence, unspecified, uncomplicated; Z79.3 Long term (current) use of hormonal contraceptives; Z53.20 Procedure and treatment not carried out because of patient's decision for unspecified reasons
CPT/HCPCS: 36415; 76705; 80053; 81001; 81025; 82248; 83690; 85025; 99284

== ENCOUNTER 2018-11-13 09:05 | Day surgery (SDC) | payer OTHER ==
[2018-11-08 13:28] VITALS: BMI 25.6
[~2018-11-13 09:05] MED LIST: DEXAMETHASONE SOD PHOSPHATE 10 MG/ML 1 ML VIAL IV ONE; HEPARIN SODIUM,PORCINE 5,000 UNIT/ML 1 ML VIAL SQ ONE; LACTATED RINGERS 1,000 ML IV SCH; MIDAZOLAM 2 MG/2 ML VIAL IV PRN; ONDANSETRON 4 MG/2 ML VIAL IVP ONE; SCOPOLAMINE 1.5MG/72HR PATCH TRANSDERM ONE
[2018-11-13 09:30] VITALS: RESP 16
--- NOTE | 2018-11-13 09:51 | P.GSHP ---
History of Present Illness H&P Date: 11/13/18 Chief Complaint: Right upper quadrant pain This a 22-year-old female with right upper quadrant pain. Patient's workup found have gallstones. 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, gallstones, pt states "half of uterus and 1 ovary" History of Any Multi-Drug Resistant Organisms: None Reported Past Surgical History: Section Additional Past Surgical History / Comment(s): wisdom teeth Past Anesthesia/Blood Transfusion Reactions: Motion Sickness, Postoperative Nausea & Vomiting (PONV) Smoking Status: Current every day smoker - Past Family History Mother Family Medical History: Thyroid Disorder Medications and Allergies Home Medications Medication Instructions Recorded Confirmed Type Famotidine [Pepcid] 20 mg PO HS #30 tablet 10/15/18 11/13/18 Rx medroxyPROGESTERone [Depo-Provera] 150 mg IM Q90D 10/15/18 11/13/18 History Mag Hydrox/Al Hydrox/Simeth 10 - 20 ml PO Q6HR #12 oz 10/16/18 11/13/18 Rx [Maalox] Multivitamins, Thera [Multivitamin 1 tab PO DAILY 10/26/18 11/13/18 History (formulary)] Allergies Allergy/AdvReac Type Severity Reaction Status Date / Time No Known Allergies Allergy Verified 11/13/18 09:30 Surgical - Exam Vital Signs Temp Pulse Resp BP Pulse Ox 97.6 F 58 L 16 113/69 97 11/13/18 09:27 11/13/18 09:27 11/13/18 09:27 11/13/18 09:27 11/13/18 09:27 - General well developed, well nourished, no distress - Eyes PERRL - ENT normal pinna - Neck no masses - Respiratory normal expansion - Cardiovascular Rhythm: regular - Abdomen Abdomen: soft, non tender Assessment and Plan Assessment: Right upper quadrant pain Gallstones We'll perform laparoscopic cholecystectomy.
--- NOTE | 2018-11-13 10:01 | P.OP ---
Date of Procedure: 11/13/18 Preoperative Diagnosis: Screening colonoscopy Postoperative Diagnosis: Normal colon Procedure(s) Performed: Colonoscopy Anesthesia: MAC Surgeon: Obi Vidal Pathology: none sent Condition: stable Disposition: PACU Description of Procedure: PROCEDURE: The patient was placed on the endoscopy table in the lateral position. Digital rectal examination was performed which revealed no abnormalities. Flexible colonoscope was then placed in the patient's anus and passed throughout the entire colon. The ileocecal valve was visualized. The cecum, ascending, transverse, descending and sigmoid colon were normal. The rectum was normal as well. There were no masses, polyps or diverticula noted in the entire colon. SUMMARY OF FINDINGS: Normal colonoscopy.
[2018-11-13] MEDS ORDERED: NEOSTIGMINE 1 MG/ML 10 ML VIAL ONE (10:29)
[2018-11-13] MEDS ORDERED: GLYCOPYRROLATE 0.2 MG/ML 2 ML VIAL ONE (10:29)
[2018-11-13] MEDS ORDERED: ROCURONIUM BROMIDE 10 MG/ML 10 ML VIAL IV ONE (10:29)
[2018-11-13] MEDS ORDERED: MIDAZOLAM 2 MG/2 ML VIAL ONE (10:29)
[2018-11-13] MEDS ORDERED: fentaNYL (PF) 50 MCG/ML 2 ML AMP ONE (10:29)
[2018-11-13] MEDS ORDERED: PROPOFOL 10 MG/ML 20 ML VIAL IV ONE (10:29)
[2018-11-13] MEDS ORDERED: LIDOCAINE 1% INJ 10MG/ML (20 ML MDV) ONE (10:29)
[2018-11-13] MEDS ORDERED: SUCCINYLCHOLINE CHLORIDE 100 MG/5 ML SYR IV ONE (10:29)
[2018-11-13] MEDS ORDERED: BUPIVACAINE (PF) 0.25% 30 ML VIAL SQ ONE (10:33)
--- NOTE | 2018-11-13 11:15 | P.OP ---
Date of Procedure: 11/13/18 Preoperative Diagnosis: Cholelithiasis Postoperative Diagnosis: Cholelithiasis Cholecystitis Procedure(s) Performed: Laparoscopic cholecystectomy Anesthesia: HAMLET Surgeon: Obi Vidal Estimated Blood Loss (ml): 5 Pathology: other (Gallbladder) Condition: stable Disposition: PACU Description of Procedure: The patient was placed on the operating table. The patient received a general endotracheal tube anesthesia. The patients abdomen was prepped and draped in the usual sterile fashion. Through an infraumbilical stab incision, the fascia of the anterior abdominal wall was grasped with a pair of Kochers and then the Veress needle was placed in the peritoneal cavity. Position of the Veress needle was confirmed with positive drop test. The abdomen was then insufflated. After adequate insufflation, the 10 mm trocar was placed in the peritoneal cavity. Following this the laparoscope was placed in the peritoneal cavity. The patient was placed in the head-up, right side up position and then a 5 mm trocar was placed in the right lateral and right subcostal position under direct visualization. A 8 mm trocar was placed in the epigastric position. The gallbladder was grasped in the fundus and infundibulum. Traction on the gallbladder was placed in the lateral and the cephalad positions. The triangle of Calot was visualized.. The cystic duct was bluntly dissected until the union of the cystic duct and common bile duct was seen. A critical view of safety was achieved. The cystic duct was then divided and sealed with the Harmonic scissors. A PDS Endoloop was then placed throughout the cystic duct stump. The cystic artery divided and sealed with the Harmonic scissors. The gallbladder was then removed from the liver bed using Harmonic scissors. The gallbladder was then extracted through the epigastric port site. Operative field was checked for any bleeding spots and Harmonic scissors was used to coagulate the liver bed. The abdomen was irrigated. The trocars were removed. The skin was closed using interrupted 3-0 Vicryl suture. Dermabond dressing were applied. The patient tolerated the procedure well.
[2018-11-13 11:32] VITALS: TEMP 98
[2018-11-13] MEDS ORDERED: KETOROLAC 30 MG/ML 1 ML VIAL IVP ONE (11:32)
[2018-11-13] MEDS: HYDROmorphone 0.5 MG/0.5 ML SYRINGE IVP PRN ×3 (11:44→12:09)
[2018-11-13] MEDS ORDERED: LACTATED RINGERS 1,000 ML IV ONE (12:19)
[2018-11-13] MEDS ORDERED: HYDROcodone/APAP 5-325MG 1 EACH TAB PO ONE (12:30)
[2018-11-13 12:32] VITALS: BP 122/86; PULSE 56
== END 2018-11-13 12:53 | disposition home or self-care (01) ==
LOC: OR 09:05
PROVIDERS: ATTEND Surgery
DX: K80.10 Calculus of gallbladder with chronic cholecystitis without obstruction (principal); F17.200 Nicotine dependence, unspecified, uncomplicated; Q60.0 Renal agenesis, unilateral; Z79.3 Long term (current) use of hormonal contraceptives; Z79.899 Other long term (current) drug therapy; Z87.11 Personal history of peptic ulcer disease; Z98.818 Other dental procedure status; Z83.49 Family history of other endocrine, nutritional and metabolic diseases
CPT/HCPCS: 81025; 88304; 47562; J2250; J1644; J1100; J2710; J0690; J2405; J2001; J3010; J1885; J0330; J2704; J1170

== ENCOUNTER 2021-11-12 06:22 | Day surgery (SDC) | payer OTHER ==
[2021-11-10 12:34] VITALS: BMI 28.3
--- NOTE | 2021-11-11 16:27 | P.HPOB ---
History of Present Illness H&P Date: 11/11/21 Chief Complaint: family planning 25 year old presents for laparoscopic tubal ligation. Review of Systems All systems: negative Constitutional: Denies chills, Denies fever Eyes: denies blurred vision, denies pain Ears, nose, mouth and throat: Denies headache, Denies sore throat Cardiovascular: Denies chest pain, Denies shortness of breath Respiratory: Denies cough Gastrointestinal: Denies abdominal pain, Denies diarrhea, Denies nausea, Denies vomiting Genitourinary: Denies dysuria, Denies hematuria Musculoskeletal: Denies myalgias Integumentary: Denies pruritus, Denies rash Neurological: Denies numbness, Denies weakness Psychiatric: Denies anxiety, Denies depression Endocrine: Denies fatigue, Denies weight change 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, pt states born with "half of uterus and 1 ovary", diarrhea, History of Any Multi-Drug Resistant Organisms: None Reported Past Surgical History: Section, Cholecystectomy Additional Past Surgical History / Comment(s): wisdom teeth Past Anesthesia/Blood Transfusion Reactions: Motion Sickness, Postoperative Nausea & Vomiting (PONV) Smoking Status: Current every day smoker - Past Family History Mother Family Medical History: No Reported History Medications and Allergies Home Medications Medication Instructions Recorded Confirmed Type medroxyPROGESTERone [Depo-Provera] 150 mg IM Q90D 10/15/18 11/10/21 History Multivitamins, Thera [Multivitamin 1 tab PO DAILY 10/26/18 11/10/21 History (formulary)] Allergies Allergy/AdvReac Type Severity Reaction Status Date / Time No Known Allergies Allergy Verified 11/10/21 12:27 Exam Osteopathic Statement: *. No significant issues noted on an osteopathic structural exam other than those noted in the History and Physical/Consult. HEart: RRR Lungs: CTAB Abdomen: soft, nontender Extremeties: neg isael's Assessment and Plan (1) Family planning Status: Acute Code(s): Z30.09 - ENCOUNTER FOR OTH GENERAL CNSL AND ADVICE ON C ONTRACEPTION SNOMED Code(s): 468477480 Plan: 1. laparoscopic tubal ligation
[~2021-11-12 06:22] MED LIST changes: -DEXAMETHASONE SOD PHOSPHATE 10 MG/ML 1 ML VIAL IV ONE; +DEXAMETHASONE SOD PHOSPHATE 4 MG/ML 1 ML VIAL IV ONE; -HEPARIN SODIUM,PORCINE 5,000 UNIT/ML 1 ML VIAL SQ ONE; +LIDOCAINE 1% (10MG/ML) FOR IV START INTRADERMA PRN; -MIDAZOLAM 2 MG/2 ML VIAL IV PRN; +Pre Op ABX Message 1 EACH MISC MISCELLANE ONE; +SCOPOLAMINE 1 MG/72 HR PATCH TRANSDERM ONE; -SCOPOLAMINE 1.5MG/72HR PATCH TRANSDERM ONE
[2021-11-12 06:54] VITALS: RESP 16
[2021-11-12] MEDS ORDERED: HYDROmorphone 0.5 MG/0.5 ML SYRINGE IVP PRN (07:00)
[2021-11-12] MEDS ORDERED: MIDAZOLAM 2 MG/2 ML VIAL IV ONE (07:10)
[2021-11-12] MEDS ORDERED: ROCURONIUM 10 MG/ML (5 ML VIAL) IV ONE (07:25)
[2021-11-12] MEDS ORDERED: GLYCOPYRROLATE 0.2 MG/ML 2 ML VIAL ONE (07:25)
[2021-11-12] MEDS ORDERED: PROPOFOL 10 MG/ML 20 ML VIAL IV ONE (07:25)
[2021-11-12] MEDS ORDERED: KETOROLAC 30 MG/ML 1 ML VIAL ONE (07:25)
[2021-11-12] MEDS ORDERED: NEOSTIGMINE 1 MG/ML 10 ML VIAL ONE (07:25)
[2021-11-12] MEDS ORDERED: SUCCINYLCHOLINE CHLORIDE 200 MG/10 ML VIAL IV ONE (07:25)
[2021-11-12] MEDS ORDERED: MIDAZOLAM 2 MG/2 ML VIAL ONE (07:25)
[2021-11-12] MEDS ORDERED: fentaNYL (PF) 50 MCG/ML 2 ML AMP ONE (07:25)
[2021-11-12] MEDS ORDERED: BUPIVACAINE (PF) 0.5% 30 ML VIAL SQ ONE (08:05)
[2021-11-12 08:23] VITALS: TEMP 97.2
[2021-11-12] MEDS ORDERED: LACTATED RINGERS 1,000 ML IV ONE (08:35)
--- NOTE | 2021-11-12 08:40 | P.OP ---
Date of Procedure: 11/12/21 Preoperative Diagnosis: 1. Family planning Postoperative Diagnosis: 1. Family planning 2. Pelvic adhesions 3. Unicornuate uterus Procedure(s) Performed: Laparoscopic tubal ligation Anesthesia: ALISIAA Surgeon: Krissy Gallardo Estimated Blood Loss (ml): 10 IV fluids (ml): 900 Urine output (ml): 20 Pathology: none sent Condition: stable Disposition: PACU Operative Findings: Omental adhesions to the low pelvis and left side of the uterus. Unicornuate uterus, fallopian tube and ovary on the right side connected to the uterus on the left side was connected to the pelvic sidewall. Description of Procedure: Patient was taken to the operating room where general anesthesia was obtained without difficulty. She was prepped and draped in normal sterile fashion in the dorsal lithotomy position, legs placed in the Julio C stirrups. Bladder drained of all urine. [place]ilderland speculum placed in the vagina and the anterior lip the cervix was grasped with single-tooth tenaculum. The uterus is sounded to 7 cm and the kroner manipulator was placed. Attention was then turned to the abdomen and gloves were changed. A 10 mm infraumbilical incision was made the scalpel and 10 mm optical trocar was placed under direct visualization. A 5 mm suprapubic Incision was made and a 5 mm optical trocar was placed under direct visualization. There were omental adhesions to the anterior abdominal wall and the left side of the uterus. These omental adhesions were taken down using the Kleppinger. Survey of the pelvis revealed unicornuate uterus that had a normal adnexa on the right but the left fallopian tube and ovary were attached to the left pelvic sidewall and not the uterus. The left fallopian tube was grasped with a Kleppinger and fulgurated 2-3 cm on this side in the ampullar portion. The right fallopian tube was grasped with a Kleppinger and fulgurated 2-3 cm in the ampullar portion. All instruments were then removed from the abdomen and vagina. The 10 mm infraumbilical incision was closed with 0 Vicryl and the fascial layer and then 4-0 Vicryl in a subcuticular fashion. The 5 mm incision was closed with 4-0 Vicryl in a subcuticular fashion. Patient tolerated procedure well, sponge and instrument counts correct 2 and she was taken to recovery room in stable condition.
[2021-11-12] MEDS ORDERED: ONDANSETRON 4 MG/2 ML VIAL IVP ONE (08:43)
[2021-11-12 10:07] VITALS: BP 140/91; PULSE 58
== END 2021-11-12 10:26 | disposition home or self-care (01) ==
LOC: OR 06:22
PROVIDERS: ATTEND Obstetrics & Gynecology
DX: Z30.2 Encounter for sterilization (principal); N73.6 Female pelvic peritoneal adhesions (postinfective); Q51.4 Unicornate uterus; K25.9 Gastric ulcer, unspecified as acute or chronic, without hemorrhage or perforation; F17.210 Nicotine dependence, cigarettes, uncomplicated; K91.0 Vomiting following gastrointestinal surgery; Z90.49 Acquired absence of other specified parts of digestive tract; Z98.891 History of uterine scar from previous surgery; Z79.890 Hormone replacement therapy; Z79.899 Other long term (current) drug therapy; T75.3XXD Motion sickness, subsequent encounter
CPT/HCPCS: 58670; 81025; J2250; J0330; J1100; J2710; J2405; J3010; J1885; J2704; J1170

== ENCOUNTER 2023-07-31 13:20 | Observation (INO) | payer OTHER ==
--- NOTE | 2023-07-31 14:12 | ED ---
Abdominal Pain HPI - General Chief Complaint: Abdominal Pain Stated Complaint: appendix-transfer Time Seen by Provider: 07/31/23 13:40 Source: patient, RN notes reviewed Mode of arrival: ambulatory Limitations: no limitations - History of Present Illness Initial Comments: This is a 27-year-old female with a past medical history of cholecystectomy the emergency department via EMS from transfer at [place] chief complaint of abdominal pain and concern for appendicitis. Patient states that she has been having right lower quadrant abdominal pain over the past 3 days and has worsened this morning. She denies nausea, vomiting, dysuria, hematuria, infection previous urine urgency. She denies fevers, chills, body aches. - Related Data Home Medications Medication Instructions Recorded Confirmed medroxyPROGESTERone [Depo-Provera] 150 mg IM Q90D 10/15/18 11/10/21 Multivitamins, Thera [Multivitamin 1 tab PO DAILY 10/26/18 11/10/21 (formulary)] Previous Rx's Medication Instructions Recorded Acetaminophen-Codeine 300-30mg 1 - 2 tab PO Q6H PRN #20 tablet 11/12/21 [Tylenol #3] Ibuprofen [Motrin] 600 mg PO Q6HR PRN #30 tab 11/12/21 Allergies Allergy/AdvReac Type Severity Reaction Status Date / Time No Known Allergies Allergy Verified 07/31/23 13:39 Review of Systems ROS Statement: Those systems with pertinent positive or pertinent negative responses have been documented in the HPI. ROS Other: All systems not noted in ROS Statement are negative. 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, gallstones, pt states "half of uterus and 1 ovary" History of Any Multi-Drug Resistant Organisms: None Reported Past Surgical History: Section Additional Past Surgical History / Comment(s): wisdom teeth Past Anesthesia/Blood Transfusion Reactions: Motion Sickness, Postoperative Nausea & Vomiting (PONV) Past Psychological History: No Psychological Hx Reported Smoking Status: Current every day smoker Past Alcohol Use History: Occasional Past Drug Use History: Marijuana - Past Family History Mother Family Medical History: No Reported History General Exam Limitations: no limitations Course Vital Signs 07/31/23 13:35 Temperature 98.3 F Pulse Rate 89 Respiratory 16 Rate Blood Pressure 108/78 O2 Sat by Pulse 98 Oximetry Disposition Clinical Impression: Appendicitis Disposition: ADMITTED IP TO THIS HOSP Condition: Good Is patient prescribed a controlled substance at d/c from ED?: No Referrals: Martin Contreras MD [Primary Care Provider] - 1-2 days Decision to Admit Reason: Admit from EC Decision Date: 07/31/23 Decision Time: 14:32
[2023-07-31] MEDS ORDERED: KETOROLAC 15 MG/ML 1 ML VIAL IVP PRN (14:33)
[2023-07-31] MEDS ORDERED: NALOXONE 0.4 MG/ML 1 ML VIAL IV PRN ×2 (14:33→16:25)
[2023-07-31 14:46] LABS: Basophils % (A) 0 %; Eosinophils # (A) 0.2 k/uL (0-0.7); Eosinophils % (A) 1 %; HCT 45.7 % (34.0-46.0); HGB 14.5 gm/dL (11.4-16.0); Lymphocytes # (A) 2.4 k/uL (1.0-4.8); Lymphocytes % (A) 20 %; MCH 30.3 pg (25.0-35.0); MCHC 31.7 g/dL (31.0-37.0); MCV 95.5 fL (80.0-100.0); Mean Platelet Volume 7.3; Monocytes # (A) 0.7 k/uL (0-1.0); Monocytes % (A) 6 %; Neutrophils # (A) 8.7 k/uL (1.3-7.7); Neutrophils % (A) 72 %; Platelet Count 239 k/uL (150-450); RBC 4.78 m/uL (3.80-5.40); RDW 13.3 % (11.5-15.5)
[2023-07-31 14:58] LABS: INR 0.9 (<1.2); Partial Thromboplastin Time 29.7 sec (22.0-30.0); Prothrombin Time 10.3 sec (10.0-12.5)
[2023-07-31 15:15] LABS: Appearance,Urine Cloudy (Clear); Bacteria,Urine Occasional /hpf; Bilirubin,Urine Negative (Negative); Blood,Urine Negative (Negative); Color,Urine Yellow; Glucose,Urine (UA) Negative (Negative); Hyaline Casts,Urine 1 /lpf (0-2); Ketones,Urine Negative (Negative); Leukocyte Esterase,Urine Negative (Negative); Mucus,Urine Moderate /hpf; Nitrite,Urine Positive (Negative); PH, Urine 6.5 (5.0-8.0); Protein,Urine Trace (Negative); RBC,Urine <1 /hpf (0-5); Squamous Epithelial Cell,Urine 10 /hpf (0-4); Urobilinogen,Urine <2.0 mg/dL (<2.0); WBC,Urine 4 /hpf (0-5)
[2023-07-31 15:16] LABS: ALT 16 U/L (4-34); AST 21 U/L (14-36); African American GFR (CKD) >90 (>60 ml/min/1.73 sqM); Albumin 4.3 g/dL (3.5-5.0); Alkaline Phosphatase 100 U/L (38-126); Anion Gap 5 mmol/L; Blood Urea Nitrogen 8 mg/dL (7-17); Calcium 8.8 mg/dL (8.4-10.2); Carbon Dioxide 23 mmol/L (22-30); Chloride 109 mmol/L (98-107); Glucose 86 mg/dL (74-99); Non-African American GFR(CKD) >90 (>60 ml/min/1.73 sqM); Sodium 137 mmol/L (137-145); Total Bilirubin 0.8 mg/dL (0.2-1.3); Total Protein 7.3 g/dL (6.3-8.2)
[2023-07-31] MEDS: IV FLUID CONTINUATION 1,000 ML IV ONE (15:23)
[2023-07-31] MEDS: ONDANSETRON 4 MG/2 ML VIAL IM STA (15:24)
[2023-07-31] MEDS: DEXAMETHASONE SOD PHOSPHATE 4 MG/ML 1 ML VIAL IVP STA (15:25)
[2023-07-31] MEDS: HEPARIN SODIUM,PORCINE 5,000 UNIT/ML 1 ML VIAL SQ STA (15:26)
--- NOTE | 2023-07-31 15:37 | P.GSHP ---
History of Present Illness H&P Date: 07/31/23 Chief Complaint: right lower quadrant pain this is a 27-year-old female with three-day history of right lower quadrant pain. Patient's CAT scan suggestive of acute appendicitis. 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, gallstones, pt states "half of uterus and 1 ovary" History of Any Multi-Drug Resistant Organisms: None Reported Past Surgical History: Section Additional Past Surgical History / Comment(s): wisdom teeth Past Anesthesia/Blood Transfusion Reactions: Motion Sickness, Postoperative Nausea & Vomiting (PONV) Past Psychological History: No Psychological Hx Reported Smoking Status: Current every day smoker Past Alcohol Use History: Occasional Past Drug Use History: Marijuana - Past Family History Mother Family Medical History: No Reported History Medications and Allergies Allergies Allergy/AdvReac Type Severity Reaction Status Date / Time No Known Allergies Allergy Verified 07/31/23 15:23 Surgical - Exam Vital Signs Temp Pulse Resp BP Pulse Ox 98.3 F 89 16 108/78 98 07/31/23 13:35 07/31/23 13:35 07/31/23 13:35 07/31/23 13:35 07/31/23 13:35 - General well developed, well nourished, no distress - Eyes PERRL - ENT normal pinna - Neck no masses - Respiratory normal expansion - Cardiovascular Rhythm: regular - Abdomen right lower quadrant pain with guarding Abdomen: soft Results - Labs 07/31/23 14:19 07/31/23 14:19 Abnormal Lab Results - Last 24 Hours (Table) 07/31/23 07/31/23 07/31/23 Range/Units 14:19 14:19 14:19 WBC 12.0 H (3.8-10.6) k/uL Neutrophils # 8.7 H (1.3-7.7) k/uL Chloride 109 H (98-107) mmol/L Urine Appearance Cloudy H (Clear) Urine Protein Trace H (Negative) Urine Nitrite Positive H (Negative) Ur Squamous Epith Cells 10 H (0-4) /hpf Urine Bacteria Occasional H (None) /hpf Urine Mucus Moderate H (None) /hpf Diabetes panel 07/31/23 Range/Units 14:19 Sodium 137 (137-145) mmol/L Potassium 4.0 (3.5-5.1) mmol/L Chloride 109 H (98-107) mmol/L Carbon Dioxide 23 (22-30) mmol/L BUN 8 (7-17) mg/dL Creatinine 0.59 (0.52-1.04) mg/dL Glucose 86 (74-99) mg/dL Calcium 8.8 (8.4-10.2) mg/dL AST 21 (14-36) U/L ALT 16 (4-34) U/L Alkaline Phosphatase 100 (38-126) U/L Total Protein 7.3 (6.3-8.2) g/dL Albumin 4.3 (3.5-5.0) g/dL Calcium panel 07/31/23 Range/Units 14:19 Calcium 8.8 (8.4-10.2) mg/dL Albumin 4.3 (3.5-5.0) g/dL Pituitary panel 07/31/23 Range/Units 14:19 Sodium 137 (137-145) mmol/L Potassium 4.0 (3.5-5.1) mmol/L Chloride 109 H (98-107) mmol/L Carbon Dioxide 23 (22-30) mmol/L BUN 8 (7-17) mg/dL Creatinine 0.59 (0.52-1.04) mg/dL Glucose 86 (74-99) mg/dL Calcium 8.8 (8.4-10.2) mg/dL Adrenal panel 07/31/23 Range/Units 14:19 Sodium 137 (137-145) mmol/L Potassium 4.0 (3.5-5.1) mmol/L Chloride 109 H (98-107) mmol/L Carbon Dioxide 23 (22-30) mmol/L BUN 8 (7-17) mg/dL Creatinine 0.59 (0.52-1.04) mg/dL Glucose 86 (74-99) mg/dL Calcium 8.8 (8.4-10.2) mg/dL Total Bilirubin 0.8 (0.2-1.3) mg/dL AST 21 (14-36) U/L ALT 16 (4-34) U/L Alkaline Phosphatase 100 (38-126) U/L Total Protein 7.3 (6.3-8.2) g/dL Albumin 4.3 (3.5-5.0) g/dL Assessment and Plan Plan: acute appendicitis. Patient was scheduled for laparoscopic appendectomy.
[2023-07-31] MEDS ORDERED: fentaNYL (PF) 50 MCG/ML 2 ML AMP ONE (15:47)
[2023-07-31] MEDS ORDERED: NEOSTIGMINE 1 MG/ML 10 ML VIAL ONE (15:47)
[2023-07-31] MEDS ORDERED: KETOROLAC 15 MG/ML 1 ML VIAL ONE (15:47)
[2023-07-31] MEDS ORDERED: MIDAZOLAM 2 MG/2 ML VIAL ONE (15:47)
[2023-07-31] MEDS ORDERED: GLYCOPYRROLATE 0.2 MG/ML 2 ML VIAL ONE (15:47)
[2023-07-31] MEDS ORDERED: ROCURONIUM 10 MG/ML (5 ML VIAL) IV ONE (15:47)
[2023-07-31] MEDS ORDERED: PROPOFOL 10 MG/ML 20 ML VIAL IV ONE (15:47)
[2023-07-31] MEDS ORDERED: SUCCINYLCHOLINE CHLORIDE 200 MG/10 ML VIAL IV ONE (15:47)
[2023-07-31] MEDS ORDERED: LIDOCAINE 1% INJ 10MG/ML (20 ML MDV) ONE (15:47)
[2023-07-31] MEDS ORDERED: HYDROmorphone (PF) 1 MG/ML ONE (15:47)
[2023-07-31] MEDS: LIDOCAINE 1%-EPI 1:100,000 20 ML VIAL SQ ONE (16:13)
[2023-07-31] MEDS ORDERED: ACETAMINOPHEN TAB 325 MG TAB PO PRN (16:25)
[2023-07-31] MEDS ORDERED: ONDANSETRON 4 MG/2 ML VIAL IVP PRN (16:25)
[2023-07-31] MEDS ORDERED: HYDROmorphone 1 MG/ML 1 ML SYRINGE IVP PRN (16:25)
--- NOTE | 2023-07-31 16:25 | P.OP ---
Date of Procedure: 07/31/23 Preoperative Diagnosis: acute appendicitis Postoperative Diagnosis: appendicitis Hemorrhagic ovarian cyst Procedure(s) Performed: laparoscopic appendectomy Anesthesia: HAMLET Surgeon: Obi Vidal Estimated Blood Loss (ml): 5 Pathology: other (appendix) Condition: stable Disposition: PACU Operative Findings: right hemorrhagic ovarian cyst Description of Procedure: HThe patient's placed on the operating table in the supine position. The patient received general anesthesia. The abdomen was prepped and draped in the usual sterile fashion. The skin was anesthetized 1% local Xylocaine at the trocar sites. Using an 11 blade the skin was incised at the umbilicus. The umbilicus was grasped with a Velasquez clamp and then a Veress needle was placed into the peritoneal cavity. Position of the Veress needle was confirmed with positive drop test. After adequate insufflation a 5 mm trocar was placed into the peritoneal cavity. The abdomen was further insufflated. And then the laparoscope was placed in the peritoneal cavity. Next a 5 mm trocar was placed in the midline suprapubic position. And then a 10 mm trocar was placed in the midline epigastric position. The patient was rotated with the right side up and in Trendelenburg. The appendix was visualized. The appendix appeared to be inflamed. The appendix was grasped and then using the Harmonic scissors the mesoappendix was divided. A PDS Endoloop was then placed around the base of the appendix. And then the appendix was divided using Harmonic scissors. The appendix was placed into an Endo Catch and brought out through the 10 mm trocar site. The abdomen was irrigated. There is no bleeding seen.the right ovary exam. Appeared to be evidence of a ruptured hemorrhagic ovarian cyst. There was no active bleeding. The trochars withdrawn. The skin was closed interrupted 3-0 Monocryl suture. Dermabond dressing was applied. Patient was sent to recovery room in stable condition.
[2023-07-31] MEDS: LACTATED RINGERS 1,000 ML IV SCH (18:56)
[2023-07-31] MEDS: KETOROLAC 15 MG/ML 1 ML VIAL IVP SCH (19:00)
[2023-07-31] MEDS: NICOTINE 21MG/24HR PATCH TRANSDERM SCH (19:48)
[2023-07-31] MEDS: HYDROcodone/APAP 5-325MG 1 EACH TAB PO PRN (23:22)
[2023-08-01 08:19] VITALS: BP 96/58; PULSE 77; RESP 18; TEMP 98.5
[2023-08-01] MEDS: ENOXAPARIN 40 MG/0.4 ML SYRINGE SQ SCH (09:17)
--- NOTE | 2023-08-01 13:18 | P.DS ---
Providers Date of admission: 07/31/23 14:51 Expected date of discharge: 08/01/23 Attending physician: Obi Vidal Primary care physician: Martin Contreras Hospital Course: Discharge diagnosis 1. Acute appendicitis 2. Hemorrhagic ovarian cyst Hospital course This is a 27-year-old female who presented the hospital with complaints of right lower quadrant abdominal pain. She was a transfer from [facility] for acute appendicitis. Patient status post laparoscopic appendectomy. She tolerated surgery well. Her pain is controlled. She has been up and ambulating. She is tolerating diet. She is afebrile. She is having flatus. Denies any difficulty urinating. She is stable for discharge. Please refer to chart for any further details. Physician Supervisor [place] note has been reviewed by physician. Signing provider agrees with the documented findings, assessment, and plan of care. Patient Condition at Discharge: Stable Plan - Discharge Summary Discharge Rx Participant: No New Discharge Prescriptions: New HYDROcodone/APAP 5-325MG [Carr 5-325] 1 tab PO Q6HR PRN 3 Days #12 tab PRN Reason: Pain Discharge Medication List HYDROcodone/APAP 5-325MG [Carr 5-325] 1 tab PO Q6HR PRN 3 Days #12 tab 08/01/23 [Rx] Follow up Appointment(s)/Referral(s): Martin Contreras MD [Primary Care Provider] - 1-2 days Obi Vidal MD [STAFF PHYSICIAN] - 08/08/23 3:40 pm Activity/Diet/Wound Care/Special Instructions: No driving while taking Carr No lifting over 10 pounds Shower daily. No soaking or tub baths for 2 weeks Very light activity until you are reevaluated at your follow up appointment with your surgeon Discharge Disposition: HOME SELF-CARE
== END 2023-08-01 13:43 | disposition home or self-care (01) ==
LOC: EC 13:20 → 6NMEDSUR 14:51
PROVIDERS: ADMIT Surgery; ATTEND Surgery
DX: K35.80 Unspecified acute appendicitis (principal); N83.201 Unspecified ovarian cyst, right side; F17.200 Nicotine dependence, unspecified, uncomplicated; Z90.49 Acquired absence of other specified parts of digestive tract; Z79.3 Long term (current) use of hormonal contraceptives; Z87.11 Personal history of peptic ulcer disease
CPT/HCPCS: 44970; 99284; 36415; 81025 ×2; 80053; 85025; 85610; 85730; 81001; 87040; G0378 ×2; S4990; J1644; J1100; J2405; J1885 ×2; 88304